=== PATIENT | male | born 1945 | race Caucasian/White ===

== ENCOUNTER → 2019-10-30 | Outpatient (CLI) | payer MEDICARE ==
[~2019-10-30] MED LIST: ALPHAG-P-0.1-5ML; AMBIEN 5MG TABLE5 MG PO; PAMELOR 25MG25 MG PO; PRILOSEC 20MG20 MG PO; PROBIOTIC FORMU1 CAP PO; SYNTHROID 0.0.025 MG PO; ZETIA 10MG TAB10 MG PO
== END ==
LOC: COL.RAD 09:00
DX: M25.571 Pain in right ankle and joints of right foot (principal); Z96.661 Presence of right artificial ankle joint
CPT/HCPCS: A9503

== ENCOUNTER 2020-02-21 07:11 | Day surgery (SDC) | payer MEDICARE ==
[~2020-02-21] VITALS: Ht 170.2 cm; Wt 72.3 kg
[2020-02-21 12:15] VITALS: BP 126/62; PULSE 57
--- NOTE | 2020-02-21 12:15 | NUR ---
Patient returns to room 6 per cart from PACU accompanied by [place] BROWER and is awake and alert. Temp 97.3 and room air sats 95%. Incisions x3 on abdomen intact with wound edges well approixmated. Incisions covered with exofen. IV fluids infusing LH and site is free of redness. Patient denies pain or nausea and is taking water.
[2020-02-21 12:30] VITALS: BP 130/68; PULSE 51
--- NOTE | 2020-02-21 12:30 | NUR ---
Resting and is sipping on coffee and drinking water. Continues to deny pain or nausea.
[2020-02-21 12:45] VITALS: BP 122/61; PULSE 54
--- NOTE | 2020-02-21 12:45 | NUR ---
Continues to sip on water and coffee. Denies nausea.
[2020-02-21 13:00] VITALS: BP 120/57; PULSE 51
--- NOTE | 2020-02-21 13:00 | NUR ---
Resting and continues to deny pain or nausea.
[2020-02-21 13:04] VITALS: BP 134/70; PULSE 57; TEMP 98.3
[2020-02-21 13:15] VITALS: BP 123/61; PULSE 55
--- NOTE | 2020-02-21 13:15 | NUR ---
Drinking coffe. Offered snack and declines at this time.
--- NOTE | 2020-02-21 13:27 | NUR ---
Assisted up to the bathroom and is able to void. Gait steady with ambulation.
--- NOTE | 2020-02-21 13:34 | NUR ---
IV discontinued. Sitting on cart and requests pain medication. Medicated with Donner 5mg on tab.
--- NOTE | 2020-02-21 13:50 | NUR ---
Dismissal instructions given and voices understanding of these. Provided script for Ultram 50mg. Instructed to avoid constipation by taking over the counter laxatives. Provided office number for questions and concerns.
--- NOTE | 2020-02-21 14:00 | NUR ---
Patient dismissed to home driven by spouse and taken to the front door per wheelchair and assisted into vehicle with dismissal instructions in hand.
== END 2020-02-21 14:00 | disposition home or self-care (01) ==
LOC: SDCO 07:11
DX: K43.9 Ventral hernia without obstruction or gangrene (principal); K40.90 Unilateral inguinal hernia, without obstruction or gangrene, not specified as recurrent; K21.9 Gastro-esophageal reflux disease without esophagitis; I10 Essential (primary) hypertension; G89.29 Other chronic pain; M54.9 Dorsalgia, unspecified; M54.2 Cervicalgia; Z90.49 Acquired absence of other specified parts of digestive tract; M19.90 Unspecified osteoarthritis, unspecified site
CPT/HCPCS: C1781; J0690; J1100; J1885; J2405; J2704; J3010; J7120

== ENCOUNTER → 2020-12-24 | Outpatient (CLI) | payer MEDICARE | LOC: COL.PUL 11-06 08:00 | DX: R93.89 Abnormal findings on diagnostic imaging of other specified body structures (principal); Z77.22 Contact with and (suspected) exposure to environmental tobacco smoke (acute) (chronic) ==

== ENCOUNTER 2021-03-03 18:33 | Emergency (ER) | payer MEDICARE ==
[~2021-03-03] VITALS: Ht 170.2 cm; Wt 75.0 kg
[2021-03-03 18:50] VITALS: TEMP 98.7
[2021-03-03 19:40] LABS: BASO % 0.3 % (0.0-2.0); EOS # 0.3 K/mm3 (0.0-0.7); EOS % 3.2 % (0.0-4.0); GRAN # 4.1 K/mm3 (1.4-6.5); GRAN % 52.6 % (42.2-75.2); HEMATOCRIT 43.2 % (42.0-52.0); HEMOGLOBIN 14.7 g/dl (13.5-18.0); LYMPH # 2.7 K/mm3 (1.2-3.4); LYMPH % 34.5 % (20.0-51.0); MEAN CELL VOLUME 95 fl (80.0-100.0); MEAN CORPUSCULAR HEMOGLOBIN 32 pg (27-31); MEAN CORPUSCULAR HGB CONC 34 g/dl (33.0-37.0); MEAN PLATELET VOLUME 10.6 fl (7.4-10.4); MONO # 0.7 K/mm3 (0.1-0.6); MONO % 9.1 % (1.7-9.3); PLATELET COUNT 153 K/mm3 (130-400); RED BLOOD COUNT 4.54 M/mm3 (4.20-5.60); REDCELL DISTRIBUTION WIDTH-CV 12.7 % (11.5-14.5)
[2021-03-03 20:02] LABS: ALBUMIN 3.7 gm/dL (3.4-4.8); BILIRUBIN,TOTAL 0.3 mg/dL (0.2-1.2); CALCIUM 8.9 mg/dL (8.4-10.2); CREATININE, serum 0.98 mg/dL (0.72-1.25); POTASSIUM 3.7 mmol/L (3.5-4.5); TOTAL PROTEIN 6.8 gm/dL (6.2-8.1)
[2021-03-03 21:12] VITALS: BP 138/87; PULSE 89
== END 2021-03-03 21:21 | disposition home or self-care (01) ==
LOC: COL.ER 18:33
PROVIDERS: Physician Assistant
DX: R51.9 Headache, unspecified (principal); R11.0 Nausea; I10 Essential (primary) hypertension; E03.9 Hypothyroidism, unspecified; Z79.890 Hormone replacement therapy
CPT/HCPCS: J1200; J1885; J2765